=== PATIENT | female | born 1995 | race Caucasian/White ===

== ENCOUNTER 2017-01-31 08:45 | Inpatient (IN) ==
[2017-01-31] MEDS ORDERED: Ondansetron 4 MG/2 ML VIAL IVP PRN (08:54)
[2017-01-31] MEDS ORDERED: Naloxone 0.4 MG/ML INJ IVP PRN (08:54)
[2017-01-31] MEDS ORDERED: Famotidine 20 MG/2 ML VIAL IVP PRN (08:54)
[2017-01-31] MEDS ORDERED: Lidocaine 1% 20 ML MDV ONE (08:59)
[2017-01-31 09:00] LABS: Basophils % 0.2 %; Eosinophils % 0.2 %; Hemoglobin 12.1 g/dL (11.5-15.4); Immature Granulocytes % 0.7 % (0-4); Lymphocytes # 3.4 K/mcL (0.6-4.6); Lymphocytes % 22.5 %; Mean Corpuscular HGB Conc 33.6 g/dL (31.6-35.5); Mean Corpuscular Hemoglobin 28.5 pg (28.0-33.3); Mean Corpuscular Volume 84.9 fL (83.0-100.0); Mean Platelet Volume 11.9 fL (9.4-12.4); Monocytes # 1.2 K/mcL (0.0-1.3); Monocytes % 7.6 %; Neutrophils # 10.4 K/mcL (1.6-8.9); Platelet Count 278 K/mcL (140-400); Red Blood Count 4.24 M/mcL (3.82-4.97); Red Cell Distribution Width 13.5 % (11.5-14.5); Segmented Neutrophils % 68.8 %
--- NOTE | 2017-01-31 09:26 | OB/GYN History & Physical ---
Date of Encounter: 01/31/17 Time of Encounter: 09:24 Assessment and Plan (1) Active labor at term Current visit: Yes Status: Acute Pt presents in active labor, expect . History of Present Illness Chief complaint: Labor HPI: Ms. Goins is a 21 year old female female presents in active labor with uc' s for 2 hrs. On arrival she was 9 cm dilated with bulging membranes. has been uncomplicated. Past Med Surg Social Fam HX - Past Medical History Source: old records reviewed Medical history: no medical history Psychiatric history: no psych history - Past Surgical History Surgical History: no surgical history - Social History Smoking Status: Current every day smoker Packs per day: 1/2 Smokeless Tobacco Status: No Alcohol use: none Drug use: none Obstetrical History - Pregnancies : 3 Para: 2 Medications and Allergies Vit/FA 1 each PO DAILY #90 tablet 07/21/15 [Rx] Albuterol Sulfate [Albuterol Inhaler] 1 puff IH Q6HR PRN #1 hfa.[email or web address] 12/14/16 [Rx] Allergies No Known Allergies Allergy (Verified 03/01/16 15:33) Exam - Constitutional Constitutional: well developed - HEENT HEENT: EOMI, PERRL - Neck Neck exam: full ROM - Lungs Respiratory exam: CTAB - Cardiovascular Cardiovascular exam: RRR - Abdomen Abdomen: Present: bowel sounds normal, gravid - Extremities Extremities exam: full ROM Deep Tendon Reflex Grade: 2+ Normal - Vagina Vagina: Present: normal moisture - Cervix Dilation: 9 Effacement: 90 Station: -2 Results Result Diagrams: 01/31/17 08:45 Abnormal lab results WBC 15.1 K/mcL (4.3-11.1) H 01/31/17 08:45 Neutrophils # 10.4 K/mcL (1.6-8.9) H 01/31/17 08:45 All other labs normal. - VTE Reasons for not Prescribing Prophylaxis: Treatment not Indicated - Low risk for VTE
--- NOTE | 2017-01-31 09:33 | OB/GYN Procedure Note ---
Delivery - Delivery Date: 01/31/17 Provider: Hasmukh Landin Intrapartum events: precipitous labor- <3hr Delivery induction: none Delivery augmentation: rupture of membranes Delivery monitor: external FHT, external uterine Anesthesia: local Estimated Blood Loss: 150 - (s) A Delivery Date: 01/31/17 Infant Delivery Time: 08:58 Presentation: vertex Position: DEREK Gender: Female Viability: Viable Weight Gram: 3.27 kg at 1 minute: 8 at 5 mins: 9 Shoulder Dystocia: not encountered Specimens collected: cord blood Placenta: spontaneous Cord: 3 umbilical vessels - Repair Laceration Description: Perineal - 2nd Degree - Complications Delivery complications: none - Disposition Mom disposition: stable in LDR disposition: stable in LDR - Comments Comments: Pt s/p of liveborn female without complications. 2nd degree laceration repaired without complications.
[2017-01-31] MEDS ORDERED: Ibuprofen 600 MG TABLET PO PRN (10:06)
[2017-01-31] MEDS ORDERED: Oxytocin 20 units/ LR 1000 mL 20 UNIT/1,000 ML BAG IVC ONE (11:22)
[2017-01-31] MEDS ORDERED: Measles/Mumps/Rubella Vacc 0.5 ML VIAL SQ PRN (12:04)
[2017-01-31] MEDS ORDERED: Acetaminophen 325 MG TABLET PO PRN (12:04)
[2017-01-31] MEDS ORDERED: Oxytocin 20 units/ LR 1000 mL 20 UNIT/1,000 ML BAG IVC SCH (12:04)
[2017-01-31] MEDS ORDERED: Rho Immune Globulin 1,500 UNIT SYRINGE IM PRN (12:04)
[2017-02-01] MEDS: Ibuprofen 600 MG TABLET PO PRN ×2 (02:25→08:05)
--- NOTE | 2017-02-01 07:35 | Discharge Summary ---
Date of Encounter: 02/01/17 Time of Encounter: 07:30 - Discharge Diagnosis (1) Status post vaginal delivery Priority: Primary Status: Acute Comments: discharge home - Discharge Medications Prescriptions: Ibuprofen [Motrin] 600 mg PO Q6HR PRN #30 tablet PRN Reason: Pain Home Medications: Vit/FA 1 each PO DAILY #90 tablet 07/21/15 [Rx] Albuterol Sulfate [Albuterol Inhaler] 1 puff IH Q6HR PRN #1 hfa.aer.ad 12/14/16 [Rx] Ibuprofen [Motrin] 600 mg PO Q6HR PRN #30 tablet 02/01/17 [Rx] Allergies/Adverse Reactions: Allergies No Known Allergies Allergy (Verified 03/01/16 15:33) Data Procedures and tests throughout hospitalization: Laboratory Tests 01/31/17 08:45 WBC 15.1 H RBC 4.24 Hgb 12.1 Hct 36.0 MCV 84.9 MCH 28.5 MCHC 33.6 RDW 13.5 Plt Count 278 MPV 11.9 Immature Gran % 0.7 Seg Neutrophils % 68.8 Lymphocytes % 22.5 Monocytes % 7.6 Eosinophils % 0.2 Basophils % 0.2 Neutrophils # 10.4 H Lymphocytes # 3.4 Monocytes # 1.2 Eosinophils # 0.0 Basophils # 0.0 Labs on day of discharge: Labs from last 24 hours 01/31/17 08:45 WBC 15.1 H RBC 4.24 Hgb 12.1 Hct 36.0 MCV 84.9 MCH 28.5 MCHC 33.6 RDW 13.5 Plt Count 278 MPV 11.9 Immature Gran % 0.7 Seg Neutrophils % 68.8 Lymphocytes % 22.5 Monocytes % 7.6 Eosinophils % 0.2 Basophils % 0.2 Neutrophils # 10.4 H Lymphocytes # 3.4 Monocytes # 1.2 Eosinophils # 0.0 Basophils # 0.0 Date of admission: 01/31/17 08:45 Primary care physician: Mushtaq Consults: 01/31/17 12:04 Consult to [facility] [CONS] Routine Comment: Vaginal delivery, consult needed Discharging clinician: Navdeep Barbour Anticipated date of discharge: 02/01/17 - Patient Status Disposition: Home, Self-Care Condition: Good Functional capacity at discharge: independent ambulation Overall status at discharge: patient is progressing back to baseline - Discharge Instructions - Diet and Activity Activity: resume usual activities as tolerated Diet: advance to your usual diet Hospital Course Procedures: status post vaginal delivery Reason for admission: active labor Delivery: Episiotomy: none Laceration: none complications: none Discharge diagnosis: IUP at term delivered Hospital course: Patient is a 21-year-old female who presented in active labor patient delivered vaginally without any complications. Patient's hospital course was unremarkable she was discharged home on hospital day #1. She will be discharged home with Motrin 600 mg follow-up in the office in 4 weeks. Time Attestation: Total time spent providing and/or coordinating discharge services: Exam - Constitutional Vitals: Temp Pulse Resp BP Pulse Ox 97.8 F 88 18 123/84 97 02/01/17 02:26 02/01/17 02:26 02/01/17 02:26 02/01/17 02:26 02/01/17 02:26 General appearance IM: A&O X 3 - Respiratory Respiratory exam: Present: CTAB - Cardiovascular Cardiovascular exam IM: Present: RRR - GI/Abdominal GI/Abdominal exam IM: normal bowel sounds - Extremities Exam Extremities exam IM: Present: full ROM
[2017-02-01] MEDS ORDERED: Ringers Solution, Lactated 500 ML IVC ONE (07:42)
[2017-02-01 08:10] VITALS: BP 132/84
[2017-02-01 08:56] LABS: Basophils % 0.2 %; Eosinophils # 0.1 K/mcL (0.0-0.6); Eosinophils % 0.6 %; Hematocrit 31.3 % (35.3-44.9); Immature Granulocytes % 0.6 % (0-4); Lymphocytes # 3.8 K/mcL (0.6-4.6); Lymphocytes % 35.4 %; Mean Corpuscular HGB Conc 32.6 g/dL (31.6-35.5); Mean Corpuscular Hemoglobin 28.4 pg (28.0-33.3); Mean Corpuscular Volume 87.2 fL (83.0-100.0); Mean Platelet Volume 12.1 fL (9.4-12.4); Monocytes # 0.7 K/mcL (0.0-1.3); Monocytes % 6.6 %; Neutrophils # 6.1 K/mcL (1.6-8.9); Platelet Count 215 K/mcL (140-400); Red Blood Count 3.59 M/mcL (3.82-4.97); Red Cell Distribution Width 13.4 % (11.5-14.5); Segmented Neutrophils % 56.6 %
[2017-02-01 08:57] LABS: Hemoglobin 10.2 g/dL (11.5-15.4)
[2017-02-01] MEDS ORDERED: Prenatal Vit/FA 1 EACH TABLET PO SCH (09:00)
== END 2017-02-01 12:33 | disposition home or self-care (01) | DRG 560 ==
LOC: 1NENULAB 08:45 → 1NENUOBS 11:29
PROVIDERS: ADMIT Obstetrics & Gynecology; ATTEND Obstetrics & Gynecology